=== PATIENT | male | born 2000 | race Caucasian/White ===

== ENCOUNTER 2020-07-15 16:06 | Emergency (ER) | payer OTHER ==
[~2020-07-15] VITALS: Ht 167.6 cm; Wt 79.8 kg
[2020-07-15 16:18] VITALS: Ht 167.6 cm; Wt 79.8 kg
[2020-07-15 18:35] VITALS: BP 132/77
== END 2020-07-15 18:35 | disposition home or self-care (01) ==
LOC: ED 16:06
DX: S29.012A Strain of muscle and tendon of back wall of thorax, initial encounter (principal); W22.8XXA Striking against or struck by other objects, initial encounter; Y93.89 Activity, other specified; Y92.89 Other specified places as the place of occurrence of the external cause; Y99.8 Other external cause status
CPT/HCPCS: 72072